=== PATIENT | male | born 1950 | race Caucasian/White ===

== ENCOUNTER 2024-01-04 15:09 | Outpatient (CLI) | payer OTHER | END 2024-01-04 15:15 | disposition home or self-care (01) | LOC: LAB 15:09 | PROVIDERS: ATTEND Urology | DX: R97.20 Elevated prostate specific antigen [PSA] (principal) ==

== ENCOUNTER 2024-03-07 07:32 | Outpatient (CLI) | payer OTHER | END 2024-03-07 07:40 | disposition home or self-care (01) | LOC: SONOGRAMA 07:32 | PROVIDERS: ATTEND Urology | DX: R97.20 Elevated prostate specific antigen [PSA] (principal) ==